=== PATIENT | male | born 1985 | race Caucasian/White ===

== ENCOUNTER 2020-07-12 19:06 | Emergency (ER) | payer OTHER, SELFPAY ==
[2020-07-12 19:17] VITALS: BP 140/78; PULSE 87; RESP 16; TEMP 37; O2SAT 96; BMI 28.8
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
[2020-07-12 19:29] VITALS: BP 137/94; PULSE 83; RESP 18; O2SAT 96
[2020-07-12 19:52] VITALS: BP 137/64; PULSE 99; RESP 17; O2SAT 96
[2020-07-12] MEDS: cyclobenzaprine 10 mg Tablet PO (20:03)
[2020-07-12] MEDS: HYDROcodone-acetaminophen 5-325 mg Tablet 1 TAB PO (20:03)
[2020-07-12] MEDS: ketorolac 30 mg/mL INJ IM (20:03)
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
[2020-07-12 21:26] VITALS: BP 131/57; PULSE 89; RESP 17; O2SAT 95
== END 2020-07-12 21:33 | disposition home or self-care (01) ==
PROVIDERS: Emergency Provider Emergency Medicine
DX: S32.000A Wedge compression fracture of unspecified lumbar vertebra, initial encounter for closed fracture (principal); V86.55XA Driver of 3- or 4- wheeled all-terrain vehicle (ATV) injured in nontraffic accident, initial encounter
CPT/HCPCS: 12345; 72072; 72100; 72128; 72131; 96372; 99281; 99283; J1885